=== PATIENT | male | born 1960 | race Caucasian/White ===

== ENCOUNTER 2020-01-01 07:23 | Emergency (ER) | payer OTHER ==
[~2020-01-01] VITALS: Ht 165.1 cm; Wt 104.3 kg
[~2020-01-01 07:23] MED LIST: ANTI-INFLAMMATORY; CYCLOBENZAPRINE10 MG PO; OXECTA5 MG PO
[2020-01-01] MEDS ORDERED: FLEXERIL PO (07:38)
[2020-01-01] MEDS ORDERED: PROZAC40 MG PO (07:38)
[2020-01-01] MEDS ORDERED: VALSARTAN-HCTZ1 EACH PO (07:39)
[2020-01-01] MEDS ORDERED: TAMSULOSIN HCL0.4 MG PO (07:39)
[2020-01-01] MEDS ORDERED: OMEPRAZOLE40 MG PO (07:40)
[2020-01-01 07:41] LABS: ABSOLUTE NEUTROPHILS 4.9 thou/uL (1.4-8.2); BASOPHILS 0.6 % (0.0-2.0); HEMATOCRIT 43.7 % (42.0-52.0); HEMOGLOBIN 14.9 gm/dL (14.0-18.0); LYMPHOCYTES 22.4 % (24.0-44.0); MCHC 34.1 g/dL (28.0-37.0); MCV 90.9 fL (80.0-100.0); MONOCYTES 8.2 % (1.0-8.0); PLATELET COUNT 199 thou/uL (150-400); POLYS 67.8 % (36.0-66.0); RBC 4.81 mil/uL (4.50-6.00); RDW 13.6 % (10.5-14.5); WBC 7.2 thou/uL (4.0-11.0)
[2020-01-01 07:51] LABS: CALCIUM 8.9 mg/dL (8.5-10.1); POTASSIUM 3.6 mmol/L (3.5-5.1)
[2020-01-01 07:53] LABS: URINE BILIRUBIN NEGATIVE (Negative); URINE BLOOD NEGATIVE (Negative); URINE CLARITY CLEAR; URINE COLOR YELLOW; URINE GLUCOSE-RANDOM* NEGATIVE (Negative); URINE KETONES NEGATIVE (Negative); URINE LEUKOCYTES-REFLEX NEGATIVE (Negative); URINE NITRITE-REFLEX NEGATIVE (Negative); URINE PROTEIN (DIPSTICK) NEGATIVE (Negative); URINE SPECIFIC GRAVITY 1.025 (1.005-1.035); URINE UROBILINOGEN 0.2 E.U./dl (0.2-1.0)
[2020-01-01 07:57] LABS: ALBUMIN 3.9 g/dL (3.4-5.0); TOTAL BILIRUBIN 0.6 mg/dL (0.2-1.0); TOTAL PROTEIN 7.3 g/dL (6.4-8.2)
[2020-01-01 08:30] VITALS: BP 144/83
== END 2020-01-01 08:38 | disposition home or self-care (01) ==
LOC: ER 07:23
PROVIDERS: Emergency Medicine
DX: K42.9 Umbilical hernia without obstruction or gangrene (principal); Z87.442 Personal history of urinary calculi; Z79.899 Other long term (current) drug therapy

== ENCOUNTER 2020-01-09 06:08 | Day surgery (SDC) | payer BC, OTHER ==
[~2020-01-09] VITALS: Ht 165.1 cm; Wt 104.3 kg
[~2020-01-09 06:08] MED LIST changes: +FLEXERIL PO; +OMEPRAZOLE40 MG PO; +PROZAC40 MG PO; +TAMSULOSIN HCL0.4 MG PO; +VALSARTAN-HCTZ1 EACH PO
[2020-01-09 07:09] LABS: HEMATOCRIT 44.6 % (42.0-52.0); MCH 30.6 pg (26.0-34.0); MCHC 33.7 g/dL (28.0-37.0); MCV 90.9 fL (80.0-100.0); RBC 4.91 mil/uL (4.50-6.00); RDW 13.3 % (10.5-14.5)
[2020-01-09] MEDS ORDERED: OXYCODONE HCL 55 MG PO (07:30)
[2020-01-09] MEDS ORDERED: IBUPROFEN 200200 M1 PO (07:30)
[2020-01-09] MEDS ORDERED: MIRALAX17 GM PO (07:31)
[2020-01-09] MEDS ORDERED: COLACE 100 MG100 MG PO (07:31)
[2020-01-09] MEDS ORDERED: ACETAMINOPHEN325 M1 PO (07:31)
[2020-01-09 07:32] LABS: CALCIUM 8.9 mg/dL (8.5-10.1); CREATININE 1.1 mg/dL (0.7-1.3); POTASSIUM 3.6 mmol/L (3.5-5.1)
[2020-01-09 07:50] VITALS: BP 146/82
[2020-01-09 08:36] VITALS: BP 146/82
--- NOTE | 2020-01-09 08:51 | EKG ---
[facility] [place] [address] ELECTROCARDIOGRAM REPORT Name: JOVAN RANGEL Room #: 150-2 [facility] M.R.#: [id number] Admission: 01/09/20 Attend Phys: Denver Gan MD Discharge: Date of : 58 Report #: [id number] THIS REPORT FOR: cc: Raoul Rodriguez James A. DO Lundgren, Craig H. 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[place] DELIA : 1960 Requested By: Denver Gan Order Number: [id number] MD: Andres Wilson Measurements Intervals [place] Rate: 62 P: 4 [place]: 170 QRS: -5 QRSD: 95 T: 6 QT: 406 QTc: 413 Interpretive Statements Sinus rhythm Inferior infarct, old Baseline wander in lead(s) I,III,aVL No previous ECG available for comparison Electronically Signed On 01-09-2020 8:50:04 CDT by Andres Wilson [email or web address] <ELECTRONICALLY SIGNED> By: Andres Wilson MD, [facility] 01/09/20 0850 [id number] Andres Wilson MD, [facility] /EPI
== END 2020-01-09 09:23 | disposition home or self-care (01) ==
LOC: OR 06:08 → TBA 06:09 → OR 09:01
PROVIDERS: ATTEND Surgery
DX: K42.9 Umbilical hernia without obstruction or gangrene (principal); I10 Essential (primary) hypertension; F32.9 Major depressive disorder, single episode, unspecified; E78.5 Hyperlipidemia, unspecified; K21.9 Gastro-esophageal reflux disease without esophagitis; Z98.890 Other specified postprocedural states; Z79.899 Other long term (current) drug therapy; Z11.59 Encounter for screening for other viral diseases; Z87.442 Personal history of urinary calculi; Z87.891 Personal history of nicotine dependence
CPT/HCPCS: 50010; 50101; 50386; 50417; 56524; 56526; 62110; 62900; 70005

== ENCOUNTER 2020-04-02 21:50 | Emergency (ER) | payer BC, OTHER ==
[~2020-04-02] VITALS: Ht 165.1 cm; Wt 106.6 kg
[~2020-04-02 21:50] MED LIST changes: +ACETAMINOPHEN325 M1 PO; +COLACE 100 MG100 MG PO; +IBUPROFEN 200200 M1 PO; +MIRALAX17 GM PO; +OXYCODONE HCL 55 MG PO
[2020-04-02 23:04] LABS: ABSOLUTE NEUTROPHILS 4.8 thou/uL (1.4-8.2); BASOPHILS 0.7 % (0.0-2.0); EOSINOPHILS 1.3 % (0.0-3.0); HEMATOCRIT 45.8 % (42.0-52.0); HEMOGLOBIN 15.6 gm/dL (14.0-18.0); MCH 31.5 pg (26.0-34.0); MCHC 34.1 g/dL (28.0-37.0); MCV 92.5 fL (80.0-100.0); MONOCYTES 9.1 % (1.0-8.0); PLATELET COUNT 217 thou/uL (150-400); POLYS 60.9 % (36.0-66.0); RBC 4.95 mil/uL (4.50-6.00); RDW 14.3 % (10.5-14.5); WBC 7.9 thou/uL (4.0-11.0)
[2020-04-02 23:09] LABS: ANION GAP 10 mmol/L (7-16); BUN 22 mg/dL (7-18); CALCIUM 8.7 mg/dL (8.5-10.1); CHLORIDE 106 mmol/L (98-107); CO2 26 mmol/L (21-32); CREATININE 1.1 mg/dL (0.7-1.3); GLUCOSE 129 mg/dL (74-106); POTASSIUM 3.5 mmol/L (3.5-5.1); SODIUM 142 mmol/L (136-145)
[2020-04-02 23:18] LABS: TROPONIN-I <0.06 ng/mL (<0.06)
[2020-04-03 01:45] VITALS: BP 131/90
--- NOTE | 2020-04-03 07:56 | EKG ---
[facility] [place] [address] ELECTROCARDIOGRAM REPORT Name: JOVAN RANGEL [id number] Admission: 04/02/20 Attend Phys: Discharge: 04/03/20 Date of : 58 Report #: [id number] THIS REPORT FOR: cc: Raoul Rodriguez James A. 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 : 1960 Requested By: Marjan Alaniz Order Number: [id number] MD: Andres Wilson Measurements Intervals [place] Rate: 89 P: 11 [place]: 184 QRS: -4 QRSD: 97 T: -4 QT: 357 QTc: 435 Interpretive Statements Sinus rhythm Abnormal R-wave progression, late transition Inferior infarct, old Nonspecific ST and T wave abnormality Compared to ECG 01/09/2020 06:49:44 No significant changes Electronically Signed On 04-03-2020 7:56:43 CDT by Andres Wilson [email or web address] <ELECTRONICALLY SIGNED> By: Andres Wilson MD, [facility] 04/03/20 0756 [id number] Andres Wilson MD, [facility] /EPI
== END 2020-04-03 01:47 | disposition home or self-care (01) ==
LOC: ER 21:50
PROVIDERS: Emergency Medicine
DX: R06.02 Shortness of breath (principal); R07.89 Other chest pain; I10 Essential (primary) hypertension; K21.9 Gastro-esophageal reflux disease without esophagitis; F32.9 Major depressive disorder, single episode, unspecified; Z79.899 Other long term (current) drug therapy; Z87.891 Personal history of nicotine dependence; Z87.442 Personal history of urinary calculi